=== PATIENT | male | born 1980 | race Caucasian/White ===

== ENCOUNTER 2018-12-05 06:04 | Inpatient (IN) | payer BC, OTHER, SELFPAY ==
[2018-11-30 13:50] VITALS: BMI 47.5
[2018-12-05] VITALS (20 sets, daily range): BP systolic 88–147; BP diastolic 43–85; PULSE 82–105; RESP 11–18; TEMP 36.3–37.4; O2SAT 90–99; BMI 48.6
--- NOTE | 2018-12-05 | DI.RAD.S_ITS ---
PROCEDURE: XR LUMBAR SPINE 2-3V INDICATIONS: L5-S1 TLIF TECHNIQUE: 2 views of the lumbar spine were acquired. COMPARISON: None. FINDINGS: Bones: Intraoperative evaluation at termination of fusion procedure showing normal alignment established after L5-S1 bilateral transverse pedicle screw placement and vertical fixation rods between. Interbody disc cage prosthesis is present centrally positioned on frontal and lateral views. Soft tissues: Overlying bowel gas pattern is normal. No suspicious soft tissue calcifications. IMPRESSION: Normal alignment established after L5-S1 fusion procedure as discussed above. Dictated by: Fernando Hernandez M.D. on 12/05/2018 at 11:45 Approved by: Fernando Hernandez M.D. on 12/05/2018 at 11:46
[2018-12-05] MEDS: LACTATED RINGERS 1,000 ML 42 ML IV ×2 (07:00→09:31)
--- NOTE | 2018-12-05 07:15 | SUR.PREOP ---
pt reports has had numbness and tingling in bilateral lower extremites since 07/10.
--- NOTE | 2018-12-05 07:38 | PM.PREOP ---
Pre-operative Note Interval Note History & Physical reviewed/Exam performed by Physician: Yes Changes to H&P: No
[2018-12-05] MEDS: CLINDAMYCIN 900 MG/50 ML PIGGYBACK 50 MG IV ×3 (07:45→23:44)
--- NOTE | 2018-12-05 08:27 | SUR.OPER ---
pt presents with red weeping skin in panus, pt also has very dry thick flaking skin on bilateral posterior heels to achilles region
--- NOTE | 2018-12-05 08:41 | SUR.OPER ---
Prone on spine table, head in foam head support, padded chest and pelvic supports, gel pad at knees, lower legs supported by pillows; nipples, genitalia and toes free of pressure, arms secured on foam padded arm boards at <90 degrees abduction. Tape over blanket at thigh secured to table. Gel pads used to keep belly protected from table pressure
[2018-12-05] MEDS: BUPIVACAINE LIPOSOME 266 MG/20 ML VIAL INJ (09:03)
[2018-12-05] MEDS: BUPIVACAINE 0.25% W/ EPI (PF) 10 ML VIAL INJ (09:03)
--- NOTE | 2018-12-05 09:25 | CM.DANOTE ---
Discharge Planning/Care Management DCP: assessment: case received, EMR reviewed and went to room to check in with pt. Noted that he is still in PACU CM Discharge Assessment Start: 12/05/18 09:13 Freq: Status: Active Protocol: Document 12/05/18 09:13 ITV (Rec: 12/05/18 09:14 ITV [id number]) Discharge Planning Assessment Advance Directives? No: Declines further information History Provided By Medical Record Prior Living Arrangements House Household Members spouse Whiteboard Updated in Patient Room with Yes name and ext. # of Cloth Neutralizer Review Status In Process Next Review Type Continued Stay Review Pre-Anesthesia Assessment Start: 11/30/18 13:50 Freq: Status: Active Protocol: Document 11/30/18 13:50 CAB (Rec: 11/30/18 14:40 CAB [id number]) Pre-Anesthesia Assessment PAC Comment Unable to reach pt for scheduled PAC phone assessment . Patient Information Reviewed Via Phone Assessment Assessment Completed With Patient Diagnostic Results BMP/CMP CBC Comment Outside labs 11/23/18 scanned to record Primary Care Provider Roula Hernandez Seen Specialist in Last 12 Months Yes Specialist Seen Orthopedist Primary Language [place] Citizen Carburetor Rebuilder Required No Height 195.58 cm Weight 181.891 kg Body Mass Index (BMI) 47.5 Hearing Ability Normal Visual Assist Glasses Dentition Type Teeth, Natural Present Barriers to Learning Memory Other Aids Yes: CPAP Comment Poor short term memory Hx Anesthesia Reactions No Hx Family Anesthesia Reaction No Hx Malignant Hyperthermia No Hx Blood Transfusions No Anesthesia Review Requested No Scientific Linguist No alcohol intake current alcohol intake frequency a few times a week Smoking Status Former smoker Tobacco type cigarettes smokeless tobacco how long ago did patient quit smoking Quit 2011, currently vapes Substance Use Type does not use Pain Present Pain Reported Musculoskeletal Symptoms Abnormal Gait Back Pain Difficulty Walking Joint Pain Muscle Cramps Muscle Weakness Numbness Radiating Pain into Limb History of Falling (Recent or History of No ) Patient is completely paralyzed or No completely immobile Prosthesis or Orthotic Device Cane Mental Status Oriented to own ability Is patient on oxygen? No Does patient have LUDWIG/SOB No Hx Sleep Apnea Yes CPAP/BIPAP use prescribed and used routinely Will Bring CPAP/BIPAP DOS Yes Currently Taking a Beta Teja No Can You Climb a Flight of Stairs Without No: Pt feels related to weight SOB Hx Chest Pain No Hx SOB No Hx Syncope or Dizziness No Anti-Coagulant Therapy No Has a Gold Beater No Cardiac Testing No Hx Pacemaker/ICD No Pacemaker Rep Required? No Cardiac Clearance Received Not Applicable Diet Type At Home Regular dysphagia No Urinary Catheter Present No Hx Urinary Self Catheterization No Diabetes No Hx Drug Resistant Organism No Presence of External or Internal Medical Yes: CPAP, internal hardware Devices Have you traveled outside the [facility] States in the last 30 days? Marital Status Lives With spouse Prior Living Arrangements House Number of Floors (Floors) One Floor Support System Parent(s) Spouse Does the Patient Have Assistance After Yes Surgery Patient Discharge Plan Description Return Home Comment Pt advised 1-3 day length of stay per surgeon's office Feels Safe in Current Environment Yes Been Physically Hurt or Threatened By a No Person in Current Environment Do you have thoughts of harming yourself None or others? Are you currently considering suicide? No Do you have a plan to hurt yourself or No Plan others? Do You Have Any Spiritual Beliefs That No May Affect Your HC Choices? Do You Have Any Cultural Practices That No May Affect Your HC Choices? Spiritual Referral None Who Can We Speak to About Patient's Care Family, friends Identifying Code for Release of Patient Declines to issue Information Health Care Proxy/Next of Kin Rosa Maria () Gi (Mom) Health Care Proxy Phone Number Rosa Maria: [phone] Gi: [phone] Emergency Contact Name Rosa Maria () Gi (Mom) Emergency Contact Phone Number Rosa Maria: [phone] Gi: [phone] Advance Directives? No: Declines further information PAC Instructions Bring CPAP/BIPAP Do not shave/clip surgical site Durable medical equipment Medications to take/avoid Nasal antibiotic No ETOH/petroleum product on skin DOS NPO Post-op transportation Pre-surgical wash Sturdy shoes/comfortable clothes Do not bring valuables and remove jewelry
[2018-12-05] MEDS: ACETAMINOPHEN IV 1,000 MG/100 ML VIAL 400 MG IV (09:47)
--- NOTE | 2018-12-05 11:45 | PM.OP.1 ---
Operative Date/Time/Diagnoses Date of procedure: 12/05/18 Time of procedure: 08:17 Pre-op diagnosis: 1. L5-S1 spondylolisthesis with bilateral pars defect 2. L3-4, L4-5, L5-S1 spinal stenosis 3. L3-4, L4-5, L5-S1 spondylosis with radiculopathy Post-op diagnosis: same Procedure & Clinicians Procedure: 1. L5-S1 Postero-lateral and posterior interbody fusion 2. L5-S1 interbody cage placement. 3. L5-S1 decompressive laminectomy with bilateral facetecomies 4. L5-S1 Posterior non-segmental instrumentation 5. L3-4, L4-5 left hemilaminectomies 6. [place] of bone marrow from iliac crest 7. Utilization of microsurgical technique and operating microscope Same procedure as scheduled: Yes Indications: Patient has been having chronic back pain and worsening lumbar radiculopathy. Patient failed multiple conservative management with worsening pain weakness and numbness in her lower extremity. Patient has been having difficulty performing activity of daily living. After discussing risks benefits of treatment options, patient elected proceed with surgery. Surgeon: Lynne Mccain Resource Technician: Lesli Babin Click Yes if Unassisted: No Anesthesia Type: General Operative Notes Closure Type: primary Specimen(s): none sent Prosthetic devices, grafts, tissues, transplants, or devices: Globus revolve screws, Rise cages Applied: catheter Estimated Blood Loss (mL): 50 Blood products transfused: none Procedure in detail: Patient was seen in the preoperative area. Risks and benefits of the surgery was discussed with the patient. Informed consent was obtained from the patient and placed in the chart. Surgical site was marked. Patient was taken to the operative room. General anesthesia was administered. Prophylactic antibiotic was given to the patient less than 30 min before the incision was made. Patient was placed into a prone position on the Arnold table. Patient's back was then prepped and draped in the sterile fashion. Time-out was performed at this time. Using AP and lateral C-arm imaging the interval between L3-4, L4-5, L5-S1 was identified and marked on patient's back. A 2 inch incision 2 in from midline was made on the left side first. The fascia was incised in line with skin incision. Globus MARS retractors was placed inside the incision and docked onto the L5 lamina. Using microsurgical technique and operating microscope, a L5 laminectomy and L5-S1 facetectomy was performed using a Kerrison rongeur. The L5-S1 level was found to be grossly unstable due to the bilateral pars defect and required a fusion procedure. Patient was found have bilateral neural foramen stenosis and was fully decompressed after the laminectomy and facetectomy was completed. The disc space at L5-S1 was identified. And a total diskectomy was performed at L5-S1 level. The endplates were decorticated using a rasp and shaver. The total diskectomy and decortication was performed at L5-S1 level in order to to accomplish a L5-S1 fusion. The local bone from the laminectomy and facetectomy was saved for local bone grafting. After the total diskectomy and decortication was completed, Globus viacell bone graft material was combined with local bone that was harvested earlier. At this time, a separate skin is incision was made over the iliac crest. A Jamshidi needle was inserted into the iliac crest through a separate skin incision. 5 cc of bone marrow aspiration was obtained through the separate skin incision using a Jamshidi needle from the iliac crest. The bone marrow aspiration was combined with local bone and the via cell bone grafting material. The bone grafting material was placed into the L5-S1 interbody space along with a expandable cage. The cage was expanded to its maximum height using the torque limiting screwdriver. At this time the MARS retractor was redirected over the L3, L4 lamina. Using microsurgical technique and operating microscope, a L3-4 L4-5 heminectomy on the left was performed using the Kerrison rongeur. The ligamentum flavum was also resected at the side of the hemilaminectomy for further decompression of the epidural space. Patient was found severe lateral recess stenosis at both L3-4 L4-5 level. The lateral recess at both levels were fully decompressed after the hemilaminectomy and decompression was completed. At this time a mirror image incision was made on the right side. The fascia was incised in line with the skin incision. Globus MARS retractor was inserted and docked onto the L5-S1 posterolateral gutter. Using the power drill, posterior-lateral decortication was performed at L5-S1 level until bleeding cortical bone was identified. The remaining bone grafting material was placed into the L5-S1 posterior lateral gutter he order to accomplish posterolateral fusion at the L5-S1 level. Using the double C-arm technique, pedicle screws were placed into the L5 and S1 pedicles bilaterally. This was done by placing the Jamshidi needle into the pedicles, then placing the guidewires over the Jamshidi needle, and finally placing the cannulated screws over the guidewires bilaterally. After the pedicle screws were placed, 2 titanium rods was locked into the heads of the pedicle screws using locking caps and torque limiting screwdriver. After all the hardware was placed, and confirmed with AP and lateral C-arm imaging, the wound was then irrigated with sterile normal saline and packed with Ray-Troy gauze for 3 min to accomplish hemostasis. After the gauze was removed the deep fascia was closed with #1 Vicryl suture. The subcutaneous layer was closed with 2-0 Vicryl. The skin was closed with skin kamilla. Patient tolerated the procedure well. There were no complications. Complications: none Condition: stable Disposition: PACU Plan for aftercare: Admit to inpatient hospital
--- NOTE | 2018-12-05 11:52 | P.OP_ITS ---
Operative Date/Time/Diagnoses Date of procedure: 12/05/18 Time of procedure: 08:17 Pre-op diagnosis: 1. L5-S1 spondylolisthesis with bilateral pars defect 2. L3-4, L4-5, L5-S1 spinal stenosis 3. L3-4, L4-5, L5-S1 spondylosis with radiculopathy Post-op diagnosis: same Procedure & Clinicians Procedure: 1. L5-S1 Postero-lateral and posterior interbody fusion 2. L5-S1 interbody cage placement. 3. L5-S1 decompressive laminectomy with bilateral facetecomies 4. L5-S1 Posterior non-segmental instrumentation 5. L3-4, L4-5 left hemilaminectomies 6. [place] of bone marrow from iliac crest 7. Utilization of microsurgical technique and operating microscope Same procedure as scheduled: Yes Indications: Patient has been having chronic back pain and worsening lumbar radiculopathy. Patient failed multiple conservative management with worsening pain weakness and numbness in her lower extremity. Patient has been having difficulty performing activity of daily living. After discussing risks benefits of treatment options, patient elected proceed with surgery. Surgeon: Lynne Mccain Booster Pump Oiler: Lesli Babin Click Yes if Unassisted: No Anesthesia Type: General Operative Notes Closure Type: primary Specimen(s): none sent Prosthetic devices, grafts, tissues, transplants, or devices: Globus revolve screws, Rise cages Applied: catheter Estimated Blood Loss (mL): 50 Blood products transfused: none Procedure in detail: Patient was seen in the preoperative area. Risks and benefits of the surgery was discussed with the patient. Informed consent was obtained from the patient and placed in the chart. Surgical site was marked. Patient was taken to the operative room. General anesthesia was administered. Prophylactic antibiotic was given to the patient less than 30 min before the incision was made. Patient was placed into a prone position on the Arnold table. Patient's back was then prepped and draped in the sterile fashion. Time- out was performed at this time. Using AP and lateral C-arm imaging the interval between L3-4, L4-5, L5-S1 was identified and marked on patient's back. A 2 inch incision 2 in from midline was made on the left side first. The fascia was incised in line with skin incision. Globus MARS retractors was placed inside the incision and docked onto the L5 lamina. Using microsurgical technique and operating microscope, a L5 laminectomy and L5-S1 facetectomy was performed using a Kerrison rongeur. The L5-S1 level was found to be grossly unstable due to the bilateral pars defect and required a fusion procedure. Patient was found have bilateral neural foramen stenosis and was fully decompressed after the laminectomy and facetectomy was completed. The disc space at L5-S1 was identified. And a total diskectomy was performed at L5-S1 level. The endplates were decorticated using a rasp and shaver. The total diskectomy and decortication was performed at L5-S1 level in order to to accomplish a L5-S1 fusion. The local bone from the laminectomy and facetectomy was saved for local bone grafting. After the total diskectomy and decortication was completed, Globus viacell bone graft material was combined with local bone that was harvested earlier. At this time, a separ ate skin is incision was made over the iliac crest. A Jamshidi needle was inserted into the iliac crest through a separate skin incision. 5 cc of bone marrow aspiration was obtained through the separate skin incision using a Jamshidi needle from the iliac crest. The bone marrow aspiration was combined with local bone and the via cell bone grafting material. The bone grafting material was placed into the L5-S1 interbody space along with a expandable cage. The cage was expanded to its maximum height using the torque limiting screwdriver. At this time the MARS retractor was redirected over the L3, L4 lamina. Using microsurgical technique and operating microscope, a L3-4 L4-5 heminectomy on the left was performed using the Kerrison rongeur. The ligamentum flavum was also resected at the side of the hemilaminectomy for further decompression of the epidural space. Patient was found severe lateral recess stenosis at both L3-4 L4-5 level. The lateral recess at both levels were fully decompressed after the hemilaminectomy and decompression was completed. At this time a mirror image incision was made on the right side. The fascia was incised in line with the skin incision. Globus MARS retractor was inserted and docked onto the L5-S1 posterolateral gutter. Using the power drill, posterior- lateral decortication was performed at L5-S1 level until bleeding cortical bone was identified. The remaining bone grafting material was placed into the L5-S1 posterior lateral gutter he order to accomplish posterolateral fusion at the L5- S1 level. Using the double C-arm technique, pedicle screws were placed into the L5 and S1 pedicles bilaterally. This was done by placing the Jamshidi needle into the pedicles, then placing the guidewires over the Jamshidi needle, and finally placing the cannulated screws over the guidewires bilaterally. After the pedicle screws were placed, 2 titanium rods was locked into the heads of the pedicle screws using locking caps and torque limiting screwdriver. After all the hardware was placed, and confirmed with AP and lateral C-arm imaging, the wound was then irrigated with sterile normal saline and packed with Ray-Troy gauze for 3 min to accomplish hemostasis. After the gauze was removed the deep fascia was closed with #1 Vicryl suture. The subcutaneous layer was closed with 2-0 Vicryl. The skin was closed with skin kamilla. Patient tolerated the procedure well. There were no complications. Complications: none Condition: stable Disposition: PACU Plan for aftercare: Admit to inpatient hospital
--- NOTE | 2018-12-05 12:09 | SUR.PHASEI ---
Report called to floor, Pt sleeping w/o response to voice. Resp even and regular, oral airways remain in place. Skin warm and dry.
--- NOTE | 2018-12-05 12:22 | SUR.PHASEI ---
Sat improving, no apnea prior to CPAP application, (pre-op sat was 95%). VSS improving towards pre-op level.
--- NOTE | 2018-12-05 12:41 | SUR.PHASEI ---
Moving around in bed, asked pt if he is hurting or needs pain med - no response, so I asked if he was just trying to wake up and he shook his head yes. O2 decreased to 2Lnp; explained that we are preparing to transfer him to his room soon.
[2018-12-05] MEDS: HYDROMORPHONE 2 MG INJ 0.5 MG IV ×2 (12:45→12:55)
--- NOTE | 2018-12-05 13:40 | SUR.PHASEI ---
1323 to room 204, bed down and locked, call light within reach, clothing and 2 other bags, CPAP, and sterile water to the room. Patient drowsy, responds appropriately, repositioned in bed. Dressing has approx a 2-3 shadow which was outlined by the acute care nurse. patient tolerates moving well w/o moaning or C/O pain. Dominguez patent, QS urine output/clear jareth. SCD's on. Family at bedside. No questions from staff or family.
[2018-12-05] MEDS: HYDROMORPHONE 1 MG INJ 0.5 MG IV (14:08)
[2018-12-05] MEDS: SODIUM CHLORIDE 0.9% 1,000 ML 100 ML IV ×2 (14:10→23:47)
--- NOTE | 2018-12-05 15:56 | PC.NURSE ---
Post-op: (Late entry)- Arrived to room 204 at 1330. Awake but drowsy, oriented X3. Logrolled to inspect dressing. Dressing to midline low back with shadow drainage on the L side of the dressing which this appeals writer outlined at that time. CMS+. Assisted with repositioning in bed. Medicated with 0.5 mg IV Dilaudid for 8/10 back pain (med effective per patient). Given water and ice, instructed to let nursing know when he'd like to try some food and hopefully transition to PO pain meds. BT hypoactive, denies flatus, denies nausea. On 2L O2 w/ cont pulse ox in place, CPAP for night time. Dominguez to gravity, urine clear jareth. IVF per orders, site in L hand WNL. Oriented to room and call light, encouraged to make needs known. Bed alarm active.
--- NOTE | 2018-12-05 18:52 | PC.NURSE ---
Addendum entered by Ambar Arguello R.N. 12/05/18 22:09: Pt resting at intervals this evening. Med at 1930 for discomfort w/fair relief. IVF continue as per orders. Cpap set up by RT F/C patent clear urien. Call light w/in reach/ bed alarm on for pt safety. Continue w/plan of care. Original Note: Pt resting at intervals this evening. Lungs clear, SpO2 98% 2L. IVF infusing @ 100cc/hr into left hand via pump as per orders. Dsg to back left =small shadow drainage, rihgt = CDI. Dominguez cath patent clear jareth urine Call light w/in reach, bed alarm on for pt safety.
[2018-12-05] MEDS: OXYCODONE IR 5 MG TABLET 10 MG PO ×2 (19:34→23:43)
[2018-12-05] MEDS: DULOXETINE 30 MG CAPSULE PO (20:40)
[2018-12-05] MEDS: CYCLOBENZAPRINE 10 MG TABLET PO (20:40)
[2018-12-05] MEDS: DOCUSATE 100 MG CAPSULE PO (20:40)
[2018-12-05] MEDS: LORATADINE 10 MG TABLET PO (20:41)
[2018-12-05] MEDS: GABAPENTIN 300 MG CAPSULE 900 MG PO (20:41)
[2018-12-05] MEDS: SENNOSIDES 8.6 MG TABLET 17.2 MG PO (20:42)
[2018-12-06] VITALS: BP 130/95; PULSE 97; RESP 18; TEMP 36.8; O2SAT 95
--- NOTE | 2018-12-06 01:14 | PC.NURSE ---
2300- Pt POD#0 LAMI w/ [address]; L side dressing w/ some shadow drainage noted. Pt not OOB since surgery; almanza catheter in place draining pale yellow urine. NS running as ordered into L hand. CPAP in place for the night. 0000- IV abx hung per orders. Pt asking for cont SpO2 to be taken off.
[2018-12-06] MEDS: hydrOXYzine pamoate 25 MG CAPSULE PO ×2 (02:47→14:00)
[2018-12-06 04:00] VITALS: BP 117/57; PULSE 96; RESP 16; TEMP 36.9; O2SAT 95
[2018-12-06] MEDS: OXYCODONE IR 5 MG TABLET 10 MG PO ×2 (05:19→12:27)
[2018-12-06 06:09] LABS: Hematocrit 38.7 % (41-53); Hemoglobin 13.2 g/dL (13.5-17.5)
[2018-12-06] MEDS: DOCUSATE 100 MG CAPSULE PO ×2 (07:29→20:42)
[2018-12-06] MEDS: GABAPENTIN 300 MG CAPSULE 900 MG PO ×2 (07:30→20:43)
[2018-12-06] MEDS: CYCLOBENZAPRINE 10 MG TABLET PO ×2 (07:32→20:42)
[2018-12-06 07:55] VITALS: BP 118/63; PULSE 103; RESP 18; TEMP 36.8; O2SAT 95
--- NOTE | 2018-12-06 07:55 | PM.PNPO.1 ---
Subjective Date Patient Seen: 12/06/18 Time Patient Seen: 07:56 Interval history: POD #1 status post TLIF with Dr. Mccain. Patient had a lot of pain last night. States all his pain is in his back that goes down to his buttocks. He notes new numbness on the right thigh. He still has a Dominguez in place. No previous issues with urinating. He was on Vicodin 7.5/325 mg Q 6 hours for a year prior to surgery. Exam Vital Signs (past 8 hours): - 12/06/18 03:15 Temperature 98.4 F Pulse Rate 96 H Respiratory Rate 16 Blood Pressure 117/57 L Pulse Oximetry 95 Oxygen Delivery Method Room Air Oxygen Flow Rate 2 Narrative Exam Narrative: Patient lying in bed in no acute distress. He is alert and oriented x3. Calves are soft, compressible, nontender bilaterally. Pulses are symmetrical. He is able to actively dorsiflex plantar flex. Objective Labs Result Diagrams: 12/06/18 05:45 Labs: Laboratory Results - last 24 hr 12/06/18 05:45 Hgb 13.2 L Hct 38.7 L Assessment & Plan Post-op (1) S/P lumbar fusion: Postoperative Procedures Operation Date: 12/05/18 07:45 Actual Procedures Side Surgeon p L3-4, L4-5 Hemilaminectomy, L5-S1 TLIF w/Posterior Instru Lynne Mccain MD Plan to mobilize with physical therapy today. No excessive bending, lifting, or twisting. Added the addition of oxycodone 15 mg for severe breakthrough pain. DC Dominguez this morning. Plan to get up and mobilize today, get pain under control, and void without a Dominguez. If he is able to do all of this he can discharge tonight if not he will likely discharge tomorrow.
[2018-12-06] MEDS: OXYCODONE IR 10 MG TABLET 15 MG PO (08:55)
--- NOTE | 2018-12-06 10:42 | PC.NURSE ---
Addendum entered by Stephanie Khanna R.N. 12/06/18 11:17: Dressing to back sith moderate amount old blood drainage and edges rolled up. Removed old dressing and placed two coversite dressings, Incisions intact, no active bleeding or redness. Patient walked in adkins with the therapy, rates pain 4/10. Sitting in chair, call light in reach. Original Note: Pt alert, oriented, given 10mg oxycodone before working with physical therapy. PPP, pt reports numbness to righ thigh, EDWARD Rodriguez aware.
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
[2018-12-06 11:12] VITALS: BP 144/92; PULSE 114; RESP 18; TEMP 37; O2SAT 92
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
--- NOTE | 2018-12-06 13:59 | PT.IPTN ---
Current Diagnoses Spondylolisthesis, lumbosacral region (12/05/18) Other spondylosis with radiculopathy, lumbar region (12/05/18) Spinal stenosis, lumbar region without neurogenic claudication (12/05/18) Arthrodesis status (12/05/18) Surgery Performed Operation Date: 12/05/18 07:45 Actual Procedures p L3-4, L4-5 Hemilaminectomy, L5-S1 TLIF w/Posterior Mariam Mccain MD Physical Therapy Treatment Note M2 PT-IP Current Condition Start: 12/06/18 11:14 Freq: NEEDED Status: Active Protocol: Document 12/06/18 10:58 DLM (Rec: 12/06/18 11:33 DLM [email or web address]) Physical Therapy Current Condition Current Condition Evaluation Date 12/06/18 Treatment Diagnosis L5-S1 TLIF Onset Date 12/05/18 Precautions Lumbar Precautions Log Roll No Twisting Limit Bending Lifting Restriction of 10 lbs Gait Belt above Incisional Area Brace none M3 PT-IP Subjective Start: 12/06/18 11:14 Freq: NEEDED Status: Active Protocol: Document 12/06/18 13:59 DLM (Rec: 12/06/18 14:14 DLM [id number]) Subjective Physical Therapy Visit Type Type Treatment Note Visit Start Time 13:29 Visit Stop Time 13:59 Total Visit Minutes 30 Number of STEREO COMPILER Visits 0 Physical Therapy Visit Comments Patient Comments He got stiff sitting up in the recliner Therapy Pain Assessment Pain When Pain Assessed After Treatment Pain Present Pain Present Pain Reported Location lower back Intensity 8 Scale Used Numeric (1 - 10) Description Aching Pain Behaviors Facial Grimacing Guarding Pain Management Techniques Re-positioning M4 PT-IP Mobility and Gait Start: 12/06/18 11:14 Freq: NEEDED Status: Active Protocol: Document 12/06/18 13:59 DLM (Rec: 12/06/18 14:14 DL [id number]) PT-Bed Mobility Assessment Rolling Type of Rolling Log Rolling Roll to Right Level of Assist Standby Assistance Sit to Supine Sit to Supine Minimal Assistance Scooting Scooting to Edge of Bed Standby Assistance PT-Transfer Assessment Sit to and From Stand Sit to and from Stand Minimal Assistance Moderate Assistance Use of Upper Extremities Equipment Transfer Assistive Device Gait Belt Front Wheeled Walker Transfers Transfer Destination Toilet Transfer Technique Stand Step Pivot Transfer Ability Level of Assist Contact Guard Assistance Use of Upper Extremities Comments Mobility Comments pt sat on toilet but unable to have BM, passed gas Gait Assessment Gait Gait Assistance Required: Contact Guard Assist Distance (Feet) 50 Assistive Devices Assistive Device Gait Belt Gait Deviations General Gait Pattern Decreased Stride Length Factors Limiting Gait Function Factors Limiting Gait Function Decreased Activity Tolerance Decreased Strength Pain Comments Gait Comments he uses bilateral UE support on the fWW, mild flexed trunk PT-Balance Assessment Sitting Balance and Reactions Static Sitting Balance Ability Good Dynamic Sitting Balance Ability Good Standing Balance and Reactions Static Standing Balance Ability Good Dynamic Standing Balance Ability Fair Device Used FWW M5 PT-IP Objective Assessments Start: 12/06/18 11:14 Freq: NEEDED Status: Active Protocol: Document 12/06/18 10:58 DLM (Rec: 12/06/18 11:33 DLM [email or web address]) Orientation Orientation/Cognition Level of Alertness Alert Orientation Name Age Birthday Month Date Year Day of Week Place Situation Language Function Ability No Deficits Noted Safety Awareness Understands Safety Issues Memory Description No Deficits Noted Gross Range of Motion Upper Extremity ROM Assessment Within Functional Limits Lower Extremity ROM Assessment Within Functional Limits Impairments trunk limited by pain and post -op restrictions Strength Upper Extremity Strength Assessment Within Functional Limits Lower Extremity Strength Assessment Bilaterally Impaired Hip functional weakness with back pain Knee knee ext 5/5 Ankle DF 5/5 Comments Strength Comments he reports his arms feels weak and get tired when trying to use them to push/lean/pull for mobility Coordination Assessment Gross Coordination Gross Coordination WNL Sensation Assessment Sensation Gross Sensation Right LE Impaired Sensation Description Numbness Comments Sensation Comments numbness right thigh since surgery Muscle Tone Muscle Tone WNL Yes M6 PT-IP Treatment Start: 12/06/18 11:14 Freq: NEEDED Status: Active Protocol: Document 12/06/18 13:59 DLM (Rec: 12/06/18 14:14 DL [id number]) Physical Therapy Treatment Education Education Provided Precautions Safety M7 PT-IP Assessment and Plan Start: 12/06/18 11:14 Freq: NEEDED Status: Active Protocol: Document 12/06/18 13:59 DLM (Rec: 12/06/18 14:14 DLM [id number]) PT Summary Assessment and Plan Summary Impairments Pain ROM Strength Balance Sensation Bed Mobility Transfers Gait Activity Tolerance Progress Towards Goals Slow Progress due to Pain Slow Progress due to Activity Tolerance Assessment Summary Percy is more sore and fatigued this afternoon. He was able to ambulate but a shorter distance than in AM. He returned to bed to rest. His nurse was notified to assist with pain management. Will continue to work towards possible discharge home tomorrow. He needs to be able to get up two steps to get into his home. Goals Bed Mobility Goal Independent Transfer Goal Independent Front Wheeled Walker Gait Goal Independent Front Wheel Walker Gait Distance 100 feet Other Goals Up and down 2 steps with cane and UE support on opposite Days to Meet Goals 3 Frequency of Treatment Frequency Of Treatment Twice a Day Treatment Plan Physical Therapy Treatment Plan Bed Mobility Training Transfer Training Gait Training Therapeutic Exercise Balance Retraining Post Op Education Discharge Planning Hot or Cold Pack Recommendations To Nursing Amount of Assist Needed 1 Person Assist Discharge Recommendations PT Discharge Recommendations Home with Assistance Other Discharge Recommendations and his Mother plan to assist him at discharge
[2018-12-06] MEDS: IBUPROFEN 400 MG TABLET 800 MG PO (14:15)
[2018-12-06 15:20] VITALS: BP 141/83; PULSE 114; RESP 18; TEMP 37.6; O2SAT 94
--- NOTE | 2018-12-06 15:34 | CM.DPC ---
DCP: continued: met with pt and his early this morning as planned. Pt is one day post op spinal surgery and his first OT/PT sessions were to be today. Pt and Rosa Maria confirm plan for a d/c to home but we hope he can stay another day as he has not yet been up. Pt is a 38 year old male who admitted to care of Dr. Mccain: surgeon: yesterday for a planned spinal surgery. Payer: [facility] and [facility]. OF NOTE: pt is 409 lbs. DCP team will be following prn to assist with d/c issues and options as more is known.
[2018-12-06] MEDS: OXYCODONE IR 5 MG TABLET 15 MG PO ×2 (16:21→20:43)
[2018-12-06 19:40] VITALS: BP 133/80; PULSE 110; RESP 18; TEMP 37.3; O2SAT 94
[2018-12-06] MEDS: LORATADINE 10 MG TABLET PO (20:42)
[2018-12-06] MEDS: SENNOSIDES 8.6 MG TABLET 17.2 MG PO (20:42)
[2018-12-06] MEDS: DULOXETINE 30 MG CAPSULE PO (20:43)
[2018-12-06] MEDS: SODIUM CHLORIDE 0.9% FLUSH 10 ML IV (20:44)
[2018-12-07] VITALS (7 sets, daily range): BP systolic 125–163; BP diastolic 50–90; PULSE 102–118; RESP 16–20; TEMP 36.7–37.1; O2SAT 92–97
[2018-12-07] MEDS: hydrOXYzine pamoate 25 MG CAPSULE PO ×2 (00:05→16:38)
[2018-12-07] MEDS: IBUPROFEN 400 MG TABLET 800 MG PO ×2 (00:05→17:34)
[2018-12-07] MEDS: OXYCODONE IR 5 MG TABLET 15 MG PO ×4 (03:47→19:28)
[2018-12-07] MEDS: PANTOPRAZOLE 40 MG TABLET PO (06:07)
--- NOTE | 2018-12-07 07:53 | PM.PNPO.1 ---
Subjective Date Patient Seen: 12/07/18 Time Patient Seen: 07:53 Interval history: Patient's pain is 5/10. Denies fever chills. No nausea vomiting. He has been able to walk short distances with physical therapy. Otherwise without complaints. Exam Vital Signs (past 8 hours): - 12/07/18 00:00 12/07/18 04:45 Temperature 98.4 F 98.2 F Pulse Rate 103 H 107 H Respiratory Rate 20 20 Blood Pressure 163/90 H 147/87 H Pulse Oximetry 97 96 Oxygen Delivery Method CPAP Oxygen Flow Rate 0 Narrative Exam Narrative: 38-year-old male resting comfortably in bed in no apparent distress. neurovascular status is intact to the bilateral lower extremities. Dressing is clean dry and intact Objective Labs Result Diagrams: 12/06/18 05:45 Assessment & Plan Post-op Postoperative Procedures Operation Date: 12/05/18 07:45 Actual Procedures Side Surgeon p L3-4, L4-5 Hemilaminectomy, L5-S1 TLIF w/Posterior Instru Lynne Mccain MD Mobilize with physical therapy today. likely discharge home later today or tomorrow.
[2018-12-07] MEDS: GABAPENTIN 300 MG CAPSULE 900 MG PO ×2 (09:38→20:16)
[2018-12-07] MEDS: CYCLOBENZAPRINE 10 MG TABLET PO ×2 (09:38→20:18)
[2018-12-07] MEDS: DOCUSATE 100 MG CAPSULE PO ×2 (09:38→20:18)
[2018-12-07] MEDS: SODIUM CHLORIDE 0.9% FLUSH 10 ML IV ×2 (09:41→20:18)
--- NOTE | 2018-12-07 11:18 | OT.IP.TRT ---
Current Diagnoses Spondylolisthesis, lumbosacral region (12/05/18) Other spondylosis with radiculopathy, lumbar region (12/05/18) Spinal stenosis, lumbar region without neurogenic claudication (12/05/18) Arthrodesis status (12/05/18) Surgery Performed Operation Date: 12/05/18 07:45 Actual Procedures p L3-4, L4-5 Hemilaminectomy, L5-S1 TLIF w/Posterior Mariam - Lynne Mccain MD Occupational Therapy Treatment Note M2 OT-IP Current Condition Start: 12/06/18 13:48 Freq: Status: Active Protocol: Document 12/06/18 11:58 PJM (Rec: 12/06/18 14:05 PJM [id number]) Occupational Therapy Current Condition Current Condition Evaluation Date 12/06/18 Treatment Diagnosis decreased self care, functional mobility s/p L3-4, L4-5 hemilami,L5-S1 TLIF Diagnosis Onset Date 12/05/18 Post Operative Precautions Lumbar Precautions Log Roll No Twisting Limit Bending Lifting Restriction of 10 lbs Gait Belt above Incisional Area M3 OT- IP Subjective and Pain Start: 12/06/18 13:48 Freq: Status: Active Protocol: Document 12/07/18 11:18 PJM (Rec: 12/07/18 14:40 PJM [id number]) OT- Subjective Occupational Therapy Visit Type Type Treatment Note Visit Start Time 10:40 Visit Stop Time 11:18 Total Visit Minutes 38 Notes Pt's and mother here for education this session. Occupational Therapy Visit Comments Patient Comments I feel considerably better today. Patient/Caregiver Goals to go home tomorrow, have less pain during everyday tasks OT Pain Assessment Pain When Pain Assessed After Treatment Pain Present Pain Present Pain Reported Location lower back Intensity 5 Scale Used Numeric (1 - 10) Description Aching Acute M4 OT- IP ADL's Start: 12/06/18 13:48 Freq: Status: Active Protocol: Document 12/07/18 11:18 PJM (Rec: 12/07/18 14:40 PJM [id number]) OT [id number] General Evaluation Self-Feeding Ability Independent Comments OT Self-Feeding Comments meal tray arrived at end of session OT ADL-Dressing General Eval Lower Body Dressing Ability Minimal Assistance Assistive Devices Dressing Assistive Devices Customer Support Agent Comments OT Dressing Comments pt declines wide sock aid; prefers to assist with socks when he wears them; pt will borrow engineering supplies sales from his mother; pt wears slip on shoes OT ADL-Toileting Devices Toileting Assistive Devices Raised Toilet Seat Toilet Paper Aid Comments OT Toileting Comments and pt had multiple questions about various toilet paper aids; provided education and online resource information. Provided bariatric commode and palced it over toilet for pt use to increase height. OT ADL-Bathing Comments OT Bathing Comments Provided education to pt's re: shower chair options. She is concerned pt's shower seat is to low. Mother to bring in shower seat so pt can try sit to stand from it wtih P.T. this PM. Pt would like to shower tomorrow with assist from , prior to d/c. to obtain long bath sponge for pt. M6 OT- IP Functional Cognition Start: 12/06/18 13:48 Freq: Status: Active Protocol: Document 12/07/18 11:18 PJ (Rec: 12/07/18 14:40 [facility] [id number]) Cognitive Factors Limiting Selfcare Function Cognitive Ability Level of Alertness Alert Patient Orientation Name Age Birthday Month Date Year Day of Week Place Situation Attention Span Ability Capable of Focused Attention Capable of Sustained Attention Ability to Follow Commands Able to Follow Multi-Step Commands Cognitive Comments Cognitive Assessment Comments Pt mildly anxious about having bowel movement prior discharge. He would like to stay another night to ensure adequate pain control. M M9 OT- IP Assessment and Plan Start: 12/06/18 13:48 Freq: Status: Active Protocol: Document 12/07/18 11:18 PJ (Rec: 12/07/18 14:40 [facility] [id number]) OT Summary Assessment and Plan Potential Rehabilitation Potential Good Summary OT Impairments Pain Toileting Bathing Toilet Transfers Shower Transfers Progress Towards Goals Progressing Toward Goals Assessment Summary Pt making good daily progress with self care skills and mobility and should be ready for d/c home tomorrow with 24 hr assist from mother (while at work) and . Plan to see pt/ for further education re: showering prior to d/c tomorrow. Goals Grooming Goal Independent Dressing Goal Independent Customer Support Agent Sock Aid Toileting Goal Independent Toilet Paper Aid Bathing Goal Standby Assistance Long Handled Sponge or [place] Toilet Transfer Goal Independent Standard Toilet Raised Toilet Seat Shower Transfer Goal Standby Assistance Walk-in Shower Patient/Caregiver Education Goal Demonstrate Post-Op Precautions Demonstrate Energy Conservation and Pacing OT-Other Goals Grooming to be done standing at sink with good body mechanics. Days to Meet Goals 1 Frequency of Treatment Frequency Of Treatment Once a Day Treatment Plan OT Treatment Plan ADL Training Functional Mobility Patient/Family Education Discharge Planning Discharge Recommendations OT Discharge Recommendations Home with Assistance Home Equipment Needs family obtaining all necessary equipt for pt
--- NOTE | 2018-12-07 11:37 | PT.IPTN ---
Current Diagnoses Spondylolisthesis, lumbosacral region (12/05/18) Other spondylosis with radiculopathy, lumbar region (12/05/18) Spinal stenosis, lumbar region without neurogenic claudication (12/05/18) Arthrodesis status (12/05/18) Surgery Performed Operation Date: 12/05/18 07:45 Actual Procedures p L3-4, L4-5 Hemilaminectomy, L5-S1 TLIF w/Posterior Mariam Mccain MD Physical Therapy Treatment Note M2 PT-IP Current Condition Start: 12/06/18 11:14 Freq: NEEDED Status: Active Protocol: Document 12/06/18 10:58 DLM (Rec: 12/06/18 11:33 DLM [email or web address]) Physical Therapy Current Condition Current Condition Evaluation Date 12/06/18 Treatment Diagnosis L5-S1 TLIF Onset Date 12/05/18 Precautions Lumbar Precautions Log Roll No Twisting Limit Bending Lifting Restriction of 10 lbs Gait Belt above Incisional Area Brace none M3 PT-IP Subjective Start: 12/06/18 11:14 Freq: NEEDED Status: Active Protocol: Document 12/07/18 11:28 GGD (Rec: 12/07/18 11:36 GGD [id number]) Subjective Physical Therapy Visit Type Type Treatment Note Visit Start Time 11:00 Visit Stop Time 10:25 Total Visit Minutes 25 Number of BOTTLE AND GLASS INSPECTOR Visits 1 Physical Therapy Visit Comments Patient Comments Pt willing to work with therapy. Therapy Pain Assessment Pain When Pain Assessed During Mobility Pain Present Pain Present Pain Reported Location lower back Intensity 5 Scale Used Numeric (1 - 10) M4 PT-IP Mobility and Gait Start: 12/06/18 11:14 Freq: NEEDED Status: Active Protocol: Document 12/07/18 11:28 GGD (Rec: 12/07/18 11:36 GGD [id number]) PT-Bed Mobility Assessment Sit to Supine Sit to Supine Contact Guard Assistance Bedrails Scooting Scooting to Edge of Bed Standby Assistance PT-Transfer Assessment Sit to and From Stand Sit to and from Stand Contact Guard Assistance 1 Person Assistance Use of Upper Extremities Equipment Transfer Assistive Device Gait Belt Front Wheeled Walker Transfers Transfer Destination Bed Transfer Ability Level of Assist Contact Guard Assistance Use of Upper Extremities Gait Assessment Gait Gait Assistance Required: Contact Guard Assist Distance (Feet) 220 Assistive Devices Assistive Device Gait Belt Gait Deviations General Gait Pattern Decreased Stride Length Factors Limiting Gait Function Factors Limiting Gait Function Decreased Activity Tolerance Decreased Strength Pain Stair Climbing Assessment Evaluation Level of Assist On Stairs Contact Guard Assistance Devices Stair Climbing Assistive Devices Front Wheel Walker Technique/Endurance Stair Climbing Direction Ascend and Descend Stair Climbing Technique Step to Step Number of Steps Climbed 1 Query Text: Stair Climbing Set # Repetitions (reps) 1 M5 PT-IP Objective Assessments Start: 12/06/18 11:14 Freq: NEEDED Status: Active Protocol: Document 12/06/18 10:58 DLM (Rec: 12/06/18 11:33 DLM [email or web address]) Orientation Orientation/Cognition Level of Alertness Alert Orientation Name Age Birthday Month Date Year Day of Week Place Situation Language Function Ability No Deficits Noted Safety Awareness Understands Safety Issues Memory Description No Deficits Noted Gross Range of Motion Upper Extremity ROM Assessment Within Functional Limits Lower Extremity ROM Assessment Within Functional Limits Impairments trunk limited by pain and post -op restrictions Strength Upper Extremity Strength Assessment Within Functional Limits Lower Extremity Strength Assessment Bilaterally Impaired Hip functional weakness with back pain Knee knee ext 5/5 Ankle DF 5/5 Comments Strength Comments he reports his arms feels weak and get tired when trying to use them to push/lean/pull for mobility Coordination Assessment Gross Coordination Gross Coordination WNL Sensation Assessment Sensation Gross Sensation Right LE Impaired Sensation Description Numbness Comments Sensation Comments numbness right thigh since surgery Muscle Tone Muscle Tone WNL Yes M6 PT-IP Treatment Start: 12/06/18 11:14 Freq: NEEDED Status: Active Protocol: Document 12/07/18 11:28 GGD (Rec: 12/07/18 11:36 GGD [id number]) Physical Therapy Treatment Education Education Provided Precautions M7 PT-IP Assessment and Plan Start: 12/06/18 11:14 Freq: NEEDED Status: Active Protocol: Document 12/07/18 11:28 GGD (Rec: 12/07/18 11:36 GGD [id number]) PT Summary Assessment and Plan Summary Assessment Summary Pt improving with mobility. He was safe and stable with stair . He was able to progress gait distance with heavy use of UE . He did have mild fatigue with gait. Pt safe with bed mobility with use of bed rail. Frequency of Treatment Frequency Of Treatment Twice a Day Treatment Plan Physical Therapy Treatment Plan Bed Mobility Training Transfer Training Gait Training Therapeutic Exercise Balance Retraining Post Op Education Discharge Planning [facility] or [place] Recommendations To Nursing Amount of Assist Needed 1 Person Assist Discharge Recommendations PT Discharge Recommendations Home with Assistance
--- NOTE | 2018-12-07 14:50 | PT.IPTN ---
Current Diagnoses Spondylolisthesis, lumbosacral region (12/05/18) Other spondylosis with radiculopathy, lumbar region (12/05/18) Spinal stenosis, lumbar region without neurogenic claudication (12/05/18) Arthrodesis status (12/05/18) Surgery Performed Operation Date: 12/05/18 07:45 Actual Procedures p L3-4, L4-5 Hemilaminectomy, L5-S1 TLIF w/Posterior Mariam Mccain MD Physical Therapy Treatment Note M2 PT-IP Current Condition Start: 12/06/18 11:14 Freq: NEEDED Status: Active Protocol: Document 12/06/18 10:58 DLM (Rec: 12/06/18 11:33 DLM [email or web address]) Physical Therapy Current Condition Current Condition Evaluation Date 12/06/18 Treatment Diagnosis L5-S1 TLIF Onset Date 12/05/18 Precautions Lumbar Precautions Log Roll No Twisting Limit Bending Lifting Restriction of 10 lbs Gait Belt above Incisional Area Brace none M3 PT-IP Subjective Start: 12/06/18 11:14 Freq: NEEDED Status: Active Protocol: Document 12/07/18 14:50 GGD (Rec: 12/07/18 15:23 GGD [id number]) Subjective Physical Therapy Visit Type Type Treatment Note Visit Start Time 14:25 Visit Stop Time 14:50 Total Visit Minutes 25 Number of OUTSOLE CEMENTER Visits 2 Physical Therapy Visit Comments Patient Comments Pt states he is stiff this afternoon. Therapy Pain Assessment Pain When Pain Assessed During Mobility Pain Present Pain Present Pain Reported M4 PT-IP Mobility and Gait Start: 12/06/18 11:14 Freq: NEEDED Status: Active Protocol: Document 12/07/18 14:50 GGD (Rec: 12/07/18 15:23 GGD [id number]) PT-Bed Mobility Assessment Rolling Type of Rolling Log Rolling Roll to Right Level of Assist Standby Assistance Supine to Sit Supine to Sit Contact Guard Assistance Scooting Scooting to Edge of Bed Standby Assistance PT-Transfer Assessment Sit to and From Stand Sit to and from Stand Contact Guard Assistance 1 Person Assistance Use of Upper Extremities Equipment Transfer Assistive Device Gait Belt Front Wheeled Walker Transfers Transfer Destination Toilet Transfer Ability Level of Assist Contact Guard Assistance Use of Upper Extremities Gait Assessment Gait Gait Assistance Required: Contact Guard Assist Distance (Feet) 100 Assistive Devices Assistive Device Gait Belt Gait Deviations General Gait Pattern Decreased Stride Length Factors Limiting Gait Function Factors Limiting Gait Function Decreased Activity Tolerance Decreased Strength Pain M5 PT-IP Objective Assessments Start: 12/06/18 11:14 Freq: NEEDED Status: Active Protocol: Document 12/06/18 10:58 DLM (Rec: 12/06/18 11:33 DLM [email or web address]) Orientation Orientation/Cognition Level of Alertness Alert Orientation Name Age Birthday Month Date Year Day of Week Place Situation Language Function Ability No Deficits Noted Safety Awareness Understands Safety Issues Memory Description No Deficits Noted Gross Range of Motion Upper Extremity ROM Assessment Within Functional Limits Lower Extremity ROM Assessment Within Functional Limits Impairments trunk limited by pain and post -op restrictions Strength Upper Extremity Strength Assessment Within Functional Limits Lower Extremity Strength Assessment Bilaterally Impaired Hip functional weakness with back pain Knee knee ext 5/5 Ankle DF 5/5 Comments Strength Comments he reports his arms feels weak and get tired when trying to use them to push/lean/pull for mobility Coordination Assessment Gross Coordination Gross Coordination WNL Sensation Assessment Sensation Gross Sensation Right LE Impaired Sensation Description Numbness Comments Sensation Comments numbness right thigh since surgery Muscle Tone Muscle Tone WNL Yes M6 PT-IP Treatment Start: 12/06/18 11:14 Freq: NEEDED Status: Active Protocol: Document 12/07/18 14:50 GGD (Rec: 12/07/18 15:23 GGD [id number]) Physical Therapy Treatment Education Education Provided Precautions M7 PT-IP Assessment and Plan Start: 12/06/18 11:14 Freq: NEEDED Status: Active Protocol: Document 12/07/18 14:50 GGD (Rec: 12/07/18 15:23 GGD [id number]) PT Summary Assessment and Plan Summary Assessment Summary Pt had increase in fatigue with gait. He limit his ambulation distance, due to UE fatigue. He was CGA for bed mobility and need min cues for sit to stand. Frequency of Treatment Frequency Of Treatment Twice a Day Recommendations To Nursing Amount of Assist Needed 1 Person Assist Discharge Recommendations PT Discharge Recommendations Home with Assistance
[2018-12-07] MEDS: DULOXETINE 30 MG CAPSULE PO (20:17)
[2018-12-07] MEDS: SENNOSIDES 8.6 MG TABLET 17.2 MG PO (20:17)
[2018-12-07] MEDS: LORATADINE 10 MG TABLET PO (20:18)
[2018-12-08] VITALS: BP 130/95; PULSE 97; RESP 18; TEMP 36.8; O2SAT 95
--- NOTE | 2018-12-08 00:16 | PC.NURSE ---
Multisensor Intelligence Officer Note: 0000: Sleeping intermittently. O2 sats drop when pt asleep. RT notified. IVs in place in rt hand and rt wrist. Vital signs stable. Dressing and francine wrap to rt thigh intact, with old drainage noted on lower 1/3 of dressing. Pt denies pain at this time.
[2018-12-08] MEDS: OXYCODONE IR 5 MG TABLET 15 MG PO ×3 (03:08→11:37)
[2018-12-08 03:25] VITALS: BP 127/99; PULSE 93; RESP 18; TEMP 37; O2SAT 96
--- NOTE | 2018-12-08 07:28 | P.DS_ITS ---
History of Present Illness Date Patient Seen: 12/08/18 Time Patient Seen: 07:36 Chief complaint: [id number] Narrative: Patient seen bedside s/p L5-S1 Postero-lateral and posterior interbody fusion with L5-S1 decompressive laminectomy with bilateral facetecomi es and L3-4, L4-5 left hemilaminectomies POD #3. Patient is doing well, he is moving better with PT and his pain is controlled. He is ready to go home. Denies chest pain shortness of breath nausea vomiting. Discharge Providers Date of admission: 12/05/18 06:04 Discharge Date: 12/08/18 Primary care physician: KALYAN Pfeiffer Consults: 12/05/18 07:09 Consult to Respiratory Therapy Evaluate & Treat Comment: Physician Instructions: Evaluate and treat 12/05/18 13:42 Consult to Occupational Therapy Evaluate & Treat Comment: Physician Instructions: Evaluate and treat Consult to Physical Therapy Evaluate & Treat Comment: Physician Instructions: Evaluate and Treat Discharge provider: Flori Dominguez PA-C Summary Discharge Diagnosis: 1. L5-S1 spondylolisthesis with bilateral pars defect 2. L3-4, L4-5, L5-S1 spinal stenosis 3. L3-4, L4-5, L5-S1 spondylosis with radiculopathy Hospital Course: Patient admitted to the hospital on 12/05/18L5-S1 Postero- lateral and posterior interbody fusion with L5-S1 decompressive laminectomy with bilateral facetecomies and L3-4, L4-[address] Mccain on 12/05/18. Patient tolerated the procedure well with no major complications. They were transferred to the acute care floor where they were placed on the standard lumbar fusion post-operative pathway and protocol. They were seen by physical therapy who recommended that they be discharged home. They were stable and ready for discharge on 12/08/18. Status at Discharge Cognitive/behavioral status at discharge: oriented Exam Vital Signs (past 8 hours): - 12/08/18 00:00 12/08/18 03:25 Temperature 98.3 F 98.6 F Pulse Rate 97 H 93 H Respiratory Rate 18 18 Blood Pressure 130/95 H 127/99 H Pulse Oximetry 95 96 Oxygen Delivery Method CPAP Oxygen Flow Rate 0 Narrative Exam Narrative: Well-developed, well-nourished, no acute distress. Alert and oriented to person, place, and time. Lumbar incisions are clean, dry, and intact with no signs of drainage. Minimal erythema and generalized swelling around the surgical site. Neurovascularly intact in bilateral lower extremities with soft and compressible calves. Range of motion intact bilateral lower extremities. Objective Labs Result Diagrams: 12/06/18 05:45 Discharge Plan Discharge Plan Patient Disposition: Home Discharge comment: d/c after cleared by PT Discharge Med Rec/Prescriptions Prescriptions: New acetaminophen 325 mg Tablet 650 mg PO Q6HR PRN (Reason: Pain, Mild (1-3)) Qty: 0 RF: 0 docusate sodium [DOK] 100 mg Capsule 100 mg PO BID Qty: 0 RF: 0 hydroxyzine pamoate 25 mg Capsule 25 mg PO Q4HR PRN (Reason: muscle spasms) Qty: 50 RF: 0 oxycodone 10 mg tablet 10 mg PO Q4-6H PRN (Reason: pain) Qty: 40 RF: 0 dexamethasone 4 mg tablet 4 mg PO Q8H Qty: 3 RF: 0 Narcan 4 mg/actuation spray,non-aerosol 1 spray NASAL Q2M PRN (Reason: opioid overdose) Qty: 2 RF: 0 Continued cyclobenzaprine 10 mg Tablet 10 mg PO BID RF: 0 ranitidine HCl [Zantac] 300 mg Tablet 300 mg PO BEDTIME RF: 0 omeprazole 40 mg Capsule,Delayed Release(Dr/Ec) 40 mg PO DAILY RF: 0 ibuprofen 200 mg Tablet 800 mg PO BID PRN (Reason: Pain) RF: 0 gabapentin 300 mg Capsule 900 mg PO BID RF: 0 duloxetine 30 mg Capsule,Delayed Release(Dr/Ec) 30 mg PO BEDTIME RF: 0 melatonin 5 mg Tablet 5 - 10 mg PO BEDTIME RF: 0 loratadine 10 mg Capsule 10 mg PO BEDTIME RF: 0 Discontinued hydrocodone-acetaminophen 7.5-325 mg Tablet 1 tab PO Q6-8H RF: 0 Follow up/Referrals: Lynne Mccain MD [Physician] - (Follow up in 10-14 days at your previously scheduled post-op appointment.) Provider Discharge Instructions Diet: Diet as Tolerated Activity: Weightbearing as tolerated, no bending, lifting greater than 5 lbs, or twisting. Cold/Heat Therapy: Apply ice to affected area for 20 minutes at a time at least hourly while awake. Skin/Wound/Dressing Care Report to your healthcare provider any signs of infection, such as:: chills, fever, night sweats, increased pain, unusual drainage and unusual redness Dressing: Keep dressing clean, dry, and intact. May shower with it in place but no soaking. Visit Report/Discharge Packet Instructions: DI for Transforaminal Lumbar Interbody Fusion Stand Alone Forms: Surgery Discharge Discharge Data Primary Care Provider: Roula Hernandez Attending Provider: Lynne Mccain Admit Date/Time: 12/05/18 06:04
[2018-12-08] MEDS: GABAPENTIN 300 MG CAPSULE 900 MG PO (07:38)
[2018-12-08] MEDS: ACETAMINOPHEN 325 MG TABLET 650 MG PO (07:39)
[2018-12-08] MEDS: PANTOPRAZOLE 40 MG TABLET PO (07:39)
[2018-12-08] MEDS: DOCUSATE 100 MG CAPSULE PO (07:39)
[2018-12-08 08:37] VITALS: BP 133/83; PULSE 109; RESP 18; TEMP 36.7; O2SAT 95
[2018-12-08] MEDS: CYCLOBENZAPRINE 10 MG TABLET PO (08:38)
[2018-12-08] MEDS: DEXAMETHASONE 4 MG TABLET 8 MG PO (09:09)
--- NOTE | 2018-12-08 10:44 | OT.IP.TRT ---
Current Diagnoses Spondylolisthesis, lumbosacral region (12/05/18) Other spondylosis with radiculopathy, lumbar region (12/05/18) Spinal stenosis, lumbar region without neurogenic claudication (12/05/18) Arthrodesis status (12/05/18) Surgery Performed Operation Date: 12/05/18 07:45 Actual Procedures p L3-4, L4-5 Hemilaminectomy, L5-S1 TLIF w/Posterior Mariam Mccain MD Occupational Therapy Treatment Note M3 OT- IP Subjective and Pain Start: 12/06/18 13:48 Freq: Status: Active Protocol: Document 12/08/18 10:44 PJM (Rec: 12/08/18 14:07 PJM [id number]) OT- Subjective Occupational Therapy Visit Type Type Treatment Note Visit Start Time 10:05 Visit Stop Time 10:44 Total Visit Minutes 39 Notes Pt's here for education this session. Occupational Therapy Visit Comments Patient Comments That shower will feel really good. Patient/Caregiver Goals to go home today OT Pain Assessment Pain When Pain Assessed After Treatment Pain Present Pain Present Pain Reported Location lower back Intensity 6 Scale Used Numeric (1 - 10) Description Aching Acute Pain Behaviors Guarding Management Techniques Apply Cold Distraction Re-positioning Timing of Activity with Medications M4 OT- IP ADL's Start: 12/06/18 13:48 Freq: Status: Active Protocol: Document 12/08/18 10:44 PJM (Rec: 12/08/18 14:07 PJM [id number]) OT [id number] General Evaluation Self-Feeding Ability Independent OT ADL-Grooming General Evaluation Grooming Ability Independent Areas Needing Assistance Combing/Brushing Hair Face Washing Comments OT Grooming Comments provided further education re: body mechanics OT ADL-Oral Care General Eval Oral Care Ability Independent Areas of Assistance Retrieving/Set-Up of Items Devices Oral Care Devices Toothbrush Comments Oral Care Comments pt completed oral care seated in chair after shower due to fatigue; provided further education re: body mechanics OT ADL-Dressing General Eval Upper Body Dressing Ability Independent Lower Body Dressing Ability Minimal Assistance Areas Needing Assistance Retrieving/Set-up of Clothing Pull-Over Shirt Underpants/Brief Pants/Shorts Socks Shoes Assistive Devices Dressing Assistive Devices Long Handled Shoe Horn Assistant Hvac Mechanic Comments OT Dressing Comments Provided further education re; use of rv repair technician and long shoe horn. Pt declines sock aid and prefers to assist with socks PRN. OT ADL-Toileting General Evaluation Toileting Ability Independent Areas Needing Assistance Manage Clothing Comments OT Toileting Comments to order toilet paper aid for pt for chloé care after BM OT ADL-Bathing Bathing Type Bathing Type Shower General Evaluation Bathing Ability Moderate Assistance Areas Needing Assistance Retrieving/Setting Up Items Wash/Dry Back Wash/Dry Lower Extremities Devices Bathing Equipment Long Handled Sponge or Plasterer Helper Held Shower Sprayer Shower Chair without Arms Comments OT Bathing Comments Provided further education to pt/ re: body mechanics and use of adaptive equipt. Pt able to stand for entire shower with 's assist with bathing and drying PRN. Pt sat on shower seat to dry off. M7 OT- IP Mobility and Balance Start: 12/06/18 13:48 Freq: Status: Active Protocol: Document 12/08/18 10:44 PJM (Rec: 12/08/18 14:07 PJ [id number]) OT-Transfer Assessment Sit to and From Stand Sit to and from Stand Standby Assistance Transfers Transfer Ability Standby Assistance 1 Person Assistance Technique Transfer Destination Chair Shower Stall Toilet Transfer Technique Stand Step Pivot Devices Transfer Assistive Devices Front Wheeled Walker Comments Mobility Comments no lose of balance noted with mobility; pt ambulating short distances 3-4 ft in bathroom without walker OT- Gait Assessment Gait Gait Assistance Required: Standby Assistance Distance (Feet) 25 Assistive Devices Assistive Device Front Wheeled Walker Comments Gait Ability Comments no loss of balance noted OT- Balance Assessment Sitting Balance and Reactions Static Sitting Balance Ability Good Dynamic Sitting Balance Ability Good Standing Balance and Reactions Static Standing Balance Ability Good Dynamic Standing Balance Ability Fair Comments Other Balance Tests/Deviations/Treatment pt leans on wall during shower : for stability M9 OT- IP Assessment and Plan Start: 12/06/18 13:48 Freq: Status: Active Protocol: Document 12/08/18 10:44 PJM (Rec: 12/08/18 14:07 PJ [id number]) OT Summary Assessment and Plan Potential Rehabilitation Potential Good Summary Progress Towards Goals Safe For Discharge Goals Met Assessment Summary All OT goals achieved for this admission. Supportive capable able to assist pt appropriately with all self care and functional mobility. Mother also here this session and will stay with pt while at work to assist with dog care, meals, etc as needed. Pt to d/c home today. No further OT services needed. Frequency of Treatment Frequency Of Treatment Discharge Discharge Recommendations OT Discharge Recommendations Home with 24/ Assist Home Equipment Needs has all necessary equipt
== END 2018-12-08 11:40 | disposition home or self-care (01) | DRG 454 ==
PROVIDERS: Admitting Provider Orthopaedic Surgery Orthopaedic Surgery of the Spine; PCP Nurse Practitioner Family; Visit Provider Orthopaedic Surgery Orthopaedic Surgery of the Spine
PROC: 0SG30AJ Fusion of Lumbosacral Joint with Interbody Fusion Device, Posterior Approach, Anterior Column, Open Approach (ICD-10-PCS; principal; 2018-12-05 07:45)
DX: M48.062 Spinal stenosis, lumbar region with neurogenic claudication (principal); Z68.42 Body mass index [BMI] 45.0-49.9, adult; M47.816 Spondylosis without myelopathy or radiculopathy, lumbar region; E66.01 Morbid (severe) obesity due to excess calories; G47.33 Obstructive sleep apnea (adult) (pediatric); M47.27 Other spondylosis with radiculopathy, lumbosacral region; M48.07 Spinal stenosis, lumbosacral region
CPT/HCPCS: 36415; 72100; 76000; 85014; 85018; 94760; 97116; 97162; 97165; 97530; 97535; C1776; C9290; J0131; J0330; J1100; J1170; J2250; J2405; J2704; J3010

== ENCOUNTER → 2020-05-03 14:15 | Outpatient (CLI) | payer BC, SELFPAY ==
[2018-12-05 15:30] VITALS: BMI 48.6
[2020-05-05 13:24] LABS: COVID19 Sendout Not Detected
== END ==
PROVIDERS: PCP Nurse Practitioner Family; Visit Provider Physician Assistant
DX: Z01.812 Encounter for preprocedural laboratory examination (principal); Z11.59 Encounter for screening for other viral diseases
CPT/HCPCS: 87635

== ENCOUNTER 2020-05-06 10:54 | Day surgery (SDC) | payer BC, OTHER, SELFPAY ==
[2018-12-05 15:30] VITALS: BMI 48.6
[2020-05-03 09:45] VITALS: BMI 50.3
[2020-05-06] VITALS (15 sets, daily range): BP systolic 112–163; BP diastolic 58–84; PULSE 10–102; RESP 10–97; TEMP 36.1–36.4; O2SAT 2–97; BMI 50.3
--- NOTE | 2020-05-06 | DI.RAD.S_ITS ---
PROCEDURE: XR LUMBAR SPINE 1V INDICATIONS: hemilaminectomy TECHNIQUE: 3 views of the lumbar spine were acquired. COMPARISON: [facility], RF, LUMBAR TRANSFORAMINAL ANASTASIA, 02/08/2020, 13:48[facility], CR, XR LUMBAR SPINE 2 OR 3 VIEWS, 09/29/2019, 15:56. [facility], CR, XR LUMBAR SPINE 2-3V, 12/05/2018, 8:21. FINDINGS: Spot fluoroscopic intraoperative views demonstrating surgical instrumentation with the tip projecting at the L2-L3 and L3-L4 level. Dictated by: Kofi Aguilar M.D. on 05/06/2020 at 14:30 Approved by: Kofi Aguilar M.D. on 05/06/2020 at 14:31
[2020-05-06] MEDS: ACETAMINOPHEN 325 MG TABLET 975 MG PO (11:14)
[2020-05-06] MEDS: LACTATED RINGERS 1,000 ML 42 ML IV (11:37)
--- NOTE | 2020-05-06 11:41 | PM.PREOP ---
Pre-operative Note COVID-19 COVID-19 status: Negative Result date/Date tested (Pos, Neg/Pending): 05/04/20 Interval Note History & Physical reviewed/Exam performed by Physician: Yes Changes to H&P: No
--- NOTE | 2020-05-06 11:52 | SUR.OPER ---
Prone on spine table, head in foam head support, padded chest and pelvic supports, gel pad at knees, lower legs supported by pillows; nipples, genitalia and toes free of pressure, arms secured on foam padded arm boards at <90 degrees abduction. Tape over blanket at thigh secured to table.
[2020-05-06] MEDS: CLINDAMYCIN 900 MG/50 ML PIGGYBACK 50 MG IV (12:16)
[2020-05-06] MEDS: BUPIVACAINE 0.25% W/ EPI 30 ML VIAL 60 ML INJ (12:48)
[2020-05-06] MEDS: methylPREDNISolone acet DEPO 40 MG/ML VIAL INJ (12:53)
--- NOTE | 2020-05-06 13:15 | PM.OP.1 ---
Operative Date/Time/Diagnoses Date of procedure: 05/06/20 Time of procedure: 12:15 Pre-op diagnosis: 1. L2-3, L3-4 spinal stenosis 2. L2-3, L3-4 spondylosis with radiculopathy Post-op diagnosis: same Procedure & Clinicians Procedure: 1. L2-3 laminectomy 2. L3-4 hemilaminectomy 3. Utilization of microsurgical technique and operating microscope Same procedure as scheduled: Yes Indications: Patient has been having chronic back pain and worsening lumbar radiculopathy. Patient failed multiple conservative management with worsening pain weakness and numbness in her lower extremity. Patient has been having difficulty performing activity of daily living. After discussing risks benefits of treatment options, patient elected proceed with surgery. Surgeon: Lynne Mccain Lube Attendant: Linda Duckworth Click Yes if Unassisted: No Anesthesia Type: General Operative Notes Closure Type: primary Specimen(s): none sent Estimated Blood Loss (mL): 5 Procedure in detail: Patient was seen in the preoperative area. Risks and benefits of the surgery was discussed with the patient. Informed consent was obtained from the patient and placed in the chart. Surgical site was marked. Patient was taken to the operative room. General anesthesia was administered. Prophylactic antibiotic was given to the patient less than 30 min before the incision was made. Patient was placed into a prone position on the Arnold table. Patient's back was then prepped and draped in the sterile fashion. Time-out was performed at this time. Using AP and lateral C-arm imaging the interval between L2-3 L3-4 was identified and marked on patient's back. A 1 inch incision 1 in from midline was made on the right side. The fascia was incised in line with skin incision. Globus MARS retractors was placed inside the incision and docked onto the L2 lamina. Using microsurgical technique and operating microscope, a L2 laminectomy was performed using a Kerrison rongeur. Liagamentum flavum was resected at the site of the laminotomy. Either side of the dura was exposed. Bilateral partial facetcomies was performed to further decompress the lateral recess. After the laminectomy was completed, the area medial lateral superior and inferior to the area of the laminectomy was inspected and explored using a micro curette. No other impinging structure was identified. The mars retractor was redirected over the L3-4 interval. Using microsurgical technique and operative microscope a hemilaminectomy was performed at L3 level. Kerrison rongeur a micro curette was used to free up the ligamentum flavum which was resected during the process of a hemilaminectomy for the further decompressing the epidural space and lateral recess. The wound was then irrigated with sterile normal saline. 40 mg Depo-Medrol was placed into the epidural space. The deep fascia was closed with 1-0 Vicryl. The subcutaneous tissue was closed with 2-0 Vicryl. The skin was closed with 4-0 skin kamilla. Patient tolerated the procedure well. There were no complications. Patient was transferred recovery room in stable condition. Complications: none Post-operative Condition: stable Disposition: PACU Plan for aftercare: Discharge to home
[2020-05-06] MEDS: HYDROMORPHONE 2 MG INJ IV ×2 (14:10→14:32)
[2020-05-06] MEDS: ONDANSETRON 4 MG/2 ML INJ IV (14:10)
--- NOTE | 2020-05-06 14:21 | SUR.PHASEI ---
Turned patient over to assess surgical site. Dressing noted to be saturated with serosanquious drainage but well contained. Reinforced dressing with 4x4 and large tegaderm. Patient drinking apple juice. Removed oxygen to assess room air saturation. Patient not speaking to nurse when asked questions but instead seems to want to use hand signals to communicate.
[2020-05-06] MEDS: OXYCODONE IR 5 MG TABLET 10 MG PO (14:34)
--- NOTE | 2020-05-06 14:45 | SUR.PHASEI ---
Patient tolerating PO fluids and snack without difficulty.
--- NOTE | 2020-05-06 14:48 | SUR.PHASEI ---
Patient refuses to talk to nurse, only nodding his head when asked questions. Pain 5/10 with a head nod.
[2020-05-06] MEDS: LACTATED RINGERS 1,000 ML 120 ML IV (15:02)
--- NOTE | 2020-05-06 16:14 | SUR.PHASEII ---
Patient's spouse called and stated the patient's back dressing was saturated and had leaked through to the patient's shirt. Recommended reinforce the dressing, apply pressure and call Dr. Mccain's office to notify. Spouse agreed.
== END 2020-05-06 15:25 | disposition home or self-care (01) ==
PROVIDERS: PCP Nurse Practitioner Family; Referring Provider Nurse Practitioner Family; Visit Provider Orthopaedic Surgery Orthopaedic Surgery of the Spine
PROC: (CPT 63047; principal; 2020-05-06 12:45)
DX: M48.062 Spinal stenosis, lumbar region with neurogenic claudication (principal); M47.26 Other spondylosis with radiculopathy, lumbar region; E66.01 Morbid (severe) obesity due to excess calories; Z68.42 Body mass index [BMI] 45.0-49.9, adult
CPT/HCPCS: 63047; 63030; 72020; 76000; J0330; J1030; J1100; J1170; J2250; J2405; J2704